=== PATIENT | male | born 1975 | race Caucasian/White ===

== ENCOUNTER 2017-01-06 18:00 | Inpatient (IN) | payer MEDICARE, OTHER ==
--- NOTE | ~2017-01-06 | PN ---
Unit #: [id number] #: [id number] Patient: DAYDAY TONG [id number] [facility] [address] [place] [address] [id number] Migue MR#: [id number] NAME: DAYDAY TONG ROOM: P252 Age: 41 Sex: M Admission Date: 01/06/2017 : 1975 Attending Physician: Bucky Franco M.D. Admitting Physician: Bucky Franco M.D. Primary Care Physician: Primary Care Physician Marcela WALDRON PROGRESS NOTES DATE 01/11/2017 DISCUSSION The patient has returned from the [facility] where he was sent after he had been found down last evening possibly suffered a seizure. No new medication changes were undertaken at that facility. I have learned that the patient's lithium has not been held as I had ordered on admission given his electrolyte status much to my grin. I will discontinue lithium as of today. Dictated by... Bucky Franco M.D. CB/grace TD: 01/11/2017 12:33 JOB #: [id number] [facility] PROGRESS NOTES Page 1 of 1 X Bucky Franco MD X PROGRESS NOTE
--- NOTE | ~2017-01-06 | PN ---
Unit #: [id number] #: [id number] Patient: DAYDAY TONG [id number] [facility] [address] [place] [address] [id number] I MR#: [id number] NAME: DAYDAY TONG ROOM: P264 Age: 41 Sex: M Admission Date: 01/06/2017 : 1975 Attending Physician: Bucky Franco M.D. Admitting Physician: Bucky Franco M.D. Primary Care Physician: Marcela Primary Care Physician [facility] PROGRESS NOTES DATE 01/08/2017. DISCUSSION The patient is in fairly good spirits today and is denying suicidal ideation. He is agreeable to plan for return to his home in [place], [place] once medically stabilized. Our chief worry at this point is the patient's hyponatremia. We continue to hold lithium as his sodium, although trending up, remains at 131. Dictated by... Bucky Franco M.D. CB/gz TD: 01/08/2017 13:40 JOB #: [id number] [facility] PROGRESS NOTES Page 1 of 1 X Bucky Franco MD X PROGRESS NOTE
--- NOTE | ~2017-01-06 | PN ---
Unit #: [id number] #: [id number] Patient: DAYDAY TONG [id number] [facility] [address] [place] [address] [id number] I MR#: [id number] NAME: DAYDAY TONG ROOM: P252 Age: 41 Sex: M Admission Date: 01/06/2017 : 1975 Attending Physician: Bucky Franco M.D. Admitting Physician: Bucky Franco M.D. Primary Care Physician: Primary Care Physician Marcela WALDRON PROGRESS NOTES DATE 01/10/2017 DISCUSSION The patient's transportation back to [place], [place] will be delayed until Friday. He remains hospitalized for safety and stabilization and is active within the therapeutic milieu who offers no new complaints today. Dictated by... Bucky Franco M.D. CB/jenny TD: 01/10/2017 15:34 JOB #: [id number] [facility] PROGRESS NOTES Page 1 of 1 X Bucky Franco MD X PROGRESS NOTE
--- NOTE | ~2017-01-06 | DS ---
Unit #: [id number] #: [id number] Patient: DAYDAY TONG [id number] [facility] [address] [place] [address] [id number] I MR#: [id number] NAME: DAYDAY TONG ROOM: P252 Age: 41 Sex: M Admission Date: 01/06/2017 : 1975 Discharge Date: 01/10/2017 Attending Physician: Bucky Franco M.D. DISCHARGE SUMMARY REASON FOR ADMISSION The patient is a 41-year-old white male, well known to this physician. He is admitted after he had traveled from a personal jail in [place], [place] and had presented to [facility] voicing suicidal ideation. HOSPITAL COURSE The patient was admitted to the [address] [place] [address] unit and placed on suicide precautions. All previously prescribed home medications were continued, but lithium was held after it was learned that the patient's level on admission was 0.1 indicating that he had not been taking the medication and the patient was noted to be hyponatremic on admission with a sodium of 125. The patient's sodium was trending upward at the time of discharge, but this physician made the decision to hold lithium until such time as his electrolytes status can be more thoroughly assessed. By 01/10/2017, the patient requested discharge and transported to [place], [place] was arranged. FINAL DIAGNOSES Schizoaffective disorder; hyponatremia. DISPOSITION ON DISCHARGE The patient is discharged on the following medications: Desyrel 300 mg at bedtime for insomnia, Ativan 0.5 mg b.i.d. for anxiety, Effexor XR 225 mg daily for depression, Neurontin 100 mg b.i.d. for anxiety, Latuda 80 mg daily for psychosis, "Cortone" apply b.i.d. to rash, nystatin 5 mL t.i.d. for oral thrush. DISCHARGE INSTRUCTIONS No dietary or physical restrictions were placed upon the patient at the time of discharge. FOLLOWUP Followup will take place through the auspices of community mental health resources in the [place], [place] area. PROGNOSIS The patient's prognosis is considered fair. Dictated by... Bucky Franco M.D. Unit #: [id number] #: [id number] Patient: DAYDAY TONG NELLIE PATEL/nayana TD: 01/09/2017 15:53 JOB #: [id number] DISCHARGE SUMMARY Page 1 of 1 X Bucky Franco MD DISCHARGE SUMMARY
--- NOTE | ~2017-01-06 | CO ---
Unit #: [id number] #: [id number] Patient: DONOAVN TONG [id number] [place] [address] [id number] I MR#: [id number] NAME: DONOVAN TONG ROOM: P252 Age: 41 Sex: M Admission Date: 01/06/2017 : 1975 Attending Physician: Bucky Franco M.D. Primary Care Physician: Primary Care Physician No Consultation Date: 01/08/2017 CONSULTATION REPORT SUBJECTIVE Donovan is a 41-year-old, who had a critical sodium level on admission. We have been asked to assess and give recommendations. At the time of admission, sodium was 125. Orders were given to repeat the level in 24 hours. Repeat level was 131. We will follow. Dictated by... Selena Sky P.A.-C. for Emre Love/nayana TD: 01/11/2017 00:37 JOB #: [id number] CONSULTATION REPORT Page 1 of 1 X Selena Sky CONSULTATION REPORT
--- NOTE | ~2017-01-06 | PA ---
Unit #: [id number] #: [id number] Patient: DAYDAY TONG [id number] [facility] [address] [place] [address] [id number] I MR#: [id number] NAME: DAYDAY TONG ROOM: P264 Age: 41 Sex: M Admission Date: 01/06/2017 : 1975 Date of Assessment: 01/07/2017 Attending Physician: Bucky Franco M.D. Admitting Physician: Bucky Franco M.D. Primary Care Physician: Primary Care Physician No PSYCHIATRIC ASSESSMENT IDENTIFYING INFORMATION The patient is a 41-year-old white male well known to this physician. He is admitted after [place] had [place] the [place] threatening suicide. CHIEF COMPLAINT "I just came back to see you all." INFORMANT Patient, reliability is poor. HISTORY OF PRESENT ILLNESS The patient is a 41-year-old white male who has not been admitted to this facility since 2014. At that time, he was placed in a residential facility in [place], [place], but states that he returned to the [place] area "just because I wanted to see you folks again," a claim which seems specious at best. The patient had reportedly made statements about jumping off the bridge prior to coming to the hospital. The patient reports that he has been compliant with prescribed medications including Eskalith, Latuda, trazodone, Ativan, Effexor XR, and Neurontin. He states that he came to [place] from [place] on a [employer] bus. It is worth noting that on admission, the patient's sodium was low at 125. PAST PSYCHIATRIC HISTORY The patient suffers from schizoaffective disorder and is chronically psychiatrically ill and disabled. 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 MEDICATIONS 1. Eskalith CR. 2. Latuda. 3. Trazodone. 4. Ativan. 5. Effexor XR. 6. Neurontin. PAST MEDICAL HISTORY Noncontributory. ALLERGIES Penicillin, diphenhydramine, Remeron, zinc acetate, and tomatoes. FAMILY HISTORY Noncontributory. Unit #: [id number] #: [id number] Patient: DAYDAY TONG SOCIAL HISTORY It is unclear whether the patient has actually left his living facility in [facility] permanently, but it is my suspicion that he has probably done so thus rendering him homeless. There is no reported use of alcohol or street drugs. The patient does use smoke tobacco. MENTAL STATUS EXAMINATION Examination at this time reveals the patient to be a well-developed well-nourished white male appearing his stated age. He is in state of some dishevelment and appears dehydrated with blistering of his lips noted. The patient is no apparent physical distress. He is awake, alert, and oriented in all spheres. His mood is dysphoric, his affect blunted, and odd. Speech is impoverished but generally well coherent. There are no gross deficits in memory or cognition noted. Intelligence is judged to be in a range consistent with mild mental retardation. The patient is cooperative throughout the interview. He is currently endorsing positive suicidal ideation. He denies homicidal ideation. He reports positive auditory hallucinations. His judgment and insight appear to be reasonably intact. ASSETS AND LIABILITIES The patient's assets are to be assessed. Liabilities: Lack of resources. DIAGNOSTIC IMPRESSION 1. Schizoaffective disorder. 2. Mild mental retardation. TREATMENT PLAN The patient remains hospitalized for safety and stabilization. At this point, given his low sodium level, we will hold lithium carbonate and look to correct his electrolytes prior to reinitiation of this medication. Other medications, however, will be reinitiated. The patient will participate in appropriate order of milieu activities, and we will look to clarify his disposition situation. ESTIMATED LENGTH OF STAY 5 to 7 days. Dictated by... Bucky Franco M.D. PATEL/grace TD: 01/07/2017 13:41 JOB #: [id number] Unit #: [id number] #: [id number] Patient: DAYDAY TONG PSYCHIATRIC ASSESSMENT Page 1 of 1 X Bucky Franco MD PSYCHIATRIC ASSESSMENT
--- NOTE | ~2017-01-06 | HP ---
Unit #: [id number] #: [id number] Patient: DONOVAN TONG [id number] [place] [address] [id number] I MR#: [id number] NAME: DONOVAN TONG ROOM: P264 Age: 41 Sex: M Admission Date: 01/06/2017 : 1975 Attending Physician: Bucky Franco M.D. Admitting Physician: Bucky Franco M.D. Primary Care Physician: Primary Care Physician No HISTORY AND PHYSICAL HISTORY OF PRESENT ILLNESS Donovan is a 41 year old admitted to [address] [place] [address] with depression and verbalizing wanting to hurt himself. He has had numerous admissions to this facility for the same. However, his last admission with us was 06/08/2015. PAST MEDICAL HISTORY 1. Obesity. 2. High blood pressure. 3. Seizure disorder. PAST SURGICAL HISTORY 1. Cholecystectomy. 2. Oral. He has had all of his teeth pulled or cut out. ALLERGIES Penicillin. SOCIAL HISTORY Smokes 1 pack per day. Denies alcohol and illicit drug use. FAMILY HISTORY Medically noncontributory. REVIEW OF SYSTEMS CONSTITUTIONAL: No fever or chills. HEENT: Denies any sore throat, ear pain or runny nose. CARDIOVASCULAR: Denies chest pain, irregular heart rhythm or palpitations. CHEST: Denies shortness of breath or cough. No hemoptysis. GASTROINTESTINAL: Denies nausea, vomiting, diarrhea or chronic constipation. ENDOCRINE: Denies history of increased thirst or urination. No recent significant weight loss or gain. GENITOURINARY: Denies dysuria, frequency, or hematuria. SKIN: Denies any rashes. HEMATOLOGIC: Denies history of increased bleeding or bruising. MUSCULOSKELETAL: Denies any hot, swollen joints. No generalized muscle pain. NEUROLOGIC: Denies problems with vision or speech. No frequent, severe headaches. No numbness, tingling or weakness in any extremities. Denies loss of bladder or bowel control. CURRENT MEDICATIONS Unit #: [id number] #: [id number] Patient: DONOVAN TONG 1. Melatonin 6 mg q.h.s. p.r.n. 2. Milk of Magnesia p.r.n. 3. Maalox p.r.n. 4. Tylenol p.r.n. PHYSICAL EXAMINATION GENERAL: Alert, well-nourished, in no apparent distress. VITAL SIGNS: Blood pressure 130/88, heart rate 80, respirations 16, temperature 98.6. WEIGHT: 285. HEIGHT: 6 feet 0 inches. SKIN: Warm and dry. He has a flat, red, dry rash along his right pate. Evidence of excoriation. HEENT: Normocephalic. TMs not viewed. Nasal passages clear. He has significant blistering/ulceration to his lower lip. Conjunctivae clear. NECK: Supple without lymphadenopathy or thyromegaly. HEART: Regular rate and rhythm without murmur. LUNGS: Clear. ABDOMEN: Soft, nontender. : Not done. EXTREMITIES: No evidence of cyanosis, clubbing or edema. Moves all without focal deficit. NEUROLOGICAL: Grossly within normal limits. Cranial Nerves: II: Visual sol are intact. III, IV AND : Extraocular movements are intact. Pupils are equal, round and reactive to light. V: Facial sensation is grossly normal. VII: Facial movements and expression are normal. VIII: Auditory acuity grossly intact. IX, X: Uvula is midline. Phonation is normal. XI: Patient shrugs shoulders and turns head normally. XII: Tongue protrudes in the midline. Sensory and Motor Function: Sensory and motor sensation is grossly normal. Motor: moves all extremities well. Coordination: Gait is normal. Deep Tendon Reflexes: Intact. IMPRESSION 1. Psychiatric admission. 2. Rash, most likely dermatitis. 3. Blisters along his lower lip, unknown etiology. RECOMMENDATIONS PSYCHIATRIC: Per psychiatrist. MEDICAL: 1. See no contraindications to participate in facility's activities. 2. Mechanical soft diet. Nystatin swish and swallow 5 cc t.i.d. x7 days and hydrocortisone cream 1% to his right pate b.i.d. MEDICAL PROGNOSIS Good. MEDICAL CONDITION Stable. Dictated by... Selena Sky P.A.-C. for Unit #: [id number] #: [id number] Patient: DONOVAN TONG Emre Love/jenny TD: 01/07/2017 19:47 JOB #: [id number] HISTORY AND PHYSICAL Page 1 of 1 X Selena Sky HISTORY AND PHYSICAL
[2017-01-07 09:44] LABS: BASOPHIL% 0.3 % (0-2.5); EOSINOPHIL% 0.7 % (0.0-7.0); HEMATOCRIT 35.7 % (38.0-50.0); HEMOGLOBIN 12.4 gm/dL (13.0-16.0); LYMPHOCYTE# 0.5 X10e3 (1.0-3.5); LYMPHOCYTE% 15.2 % (17.0-45.0); MEAN CELL VOLUME 96.3 FL (83-96); MEAN CORPUSCULAR HEMOGLOBIN 33.3 PG (28-34); MEAN CORPUSCULAR HGB CONC 34.6 g/dL (30-36); MEAN PLATELET VOLUME 6.9 FL (6.5-11.5); MONOCYTE# 0.3 X10e3 (0-1.0); MONOCYTE% 9.5 % (3.0-12.0); NEUTROPHIL# 2.5 X10e3 (1.5-7.1); NEUTROPHIL% 74.3 % (40-75); PLATELET COUNT 227 X10e3 (140-420); RED BLOOD COUNT 3.71 X10e (3.90-5.60); WHITE BLOOD COUNT 3.4 X10e3 (4.0-10.5)
[2017-01-07 09:56] LABS: URINE APPEARANCE CLEAR; URINE BILIRUBIN NEG (NEG); URINE BLOOD NEG (NEG); URINE COLOR YELLOW; URINE GLUCOSE NEG (NEG); URINE KETONE NEG (NEG); URINE LEUKOCYTE ESTERASE NEG (NEG); URINE NITRATE NEG (NEG); URINE PROTEIN NEG (NEG); URINE SPECIFIC GRAVITY 1.005 (1.003-1.035); URINE UROBILINOGEN 0.2 MG/DL (NEG)
[2017-01-07 09:58] LABS: DIFF IND NO
[2017-01-07 10:14] LABS: BILIRUBIN,TOTAL 0.9 mg/dL (0.2-2.0); BUN/CREATININE RATIO 7.5; CALCIUM SERUM 8.9 mg/dL (8.4-10.2); CREATININE SERUM 0.8 mg/dL (0.6-1.4); POTASSIUM 3.7 mmol/L (3.5-5.1); PROTEIN TOTAL SERUM 6.8 g/dL (6.0-8.3)
[2017-01-07 10:57] LABS: AMPHETAMINE NEG (NEG); BARBITURATES NEG (NEG); BENZODIAZEPINES NEG (NEG); COCAINE NEG (NEG); MARIJUANA NEG (NEG); OPIATES NEG (NEG); TRICYCLIC ANTIDEPRESSANTS NEG (NEG); U METHADONE NEG (NEG)
[2017-01-08 09:59] LABS: BUN/CREATININE RATIO 11.11; CALCIUM SERUM 9.4 mg/dL (8.4-10.2); CREATININE SERUM 0.9 mg/dL (0.6-1.4); GLOM FILT RATE Estimated 105.7 mL/min (>60)
== END 2017-01-13 11:00 | disposition short-term general hospital (02) | DRG 885 ==
LOC: P2L 19:54
PROVIDERS: Specialist
DX: F25.9 Schizoaffective disorder, unspecified (principal); E87.1 Hypo-osmolality and hyponatremia; I10 Essential (primary) hypertension; F70 Mild intellectual disabilities; E66.9 Obesity, unspecified; G40.909 Epilepsy, unspecified, not intractable, without status epilepticus; F17.210 Nicotine dependence, cigarettes, uncomplicated; Z88.0 Allergy status to penicillin; R21 Rash and other nonspecific skin eruption; S00.521A Blister (nonthermal) of lip, initial encounter; G47.00 Insomnia, unspecified; F41.9 Anxiety disorder, unspecified
CPT/HCPCS: 80048; 80053; 80178; 80307; 81003; 85025

== ENCOUNTER 2017-03-10 10:00 | Inpatient (IN) | payer MEDICARE, OTHER ==
[~2017-03-10] VITALS: Ht 167.6 cm; Wt 129.3 kg
--- NOTE | ~2017-03-10 | PA ---
Unit #: [id number] #: [id number] Patient: DAYDAY TONG [id number] [facility] [address] [place] [address] [id number] I MR#: [id number] NAME: DAYDAY TONG ROOM: P262 Age: 41 Sex: M Admission Date: 03/10/2017 : 1975 Date of Assessment: 03/11/2017 Attending Physician: Bucky Franco M.D. Admitting Physician: Bucky Franco M.D. Primary Care Physician: Primary Care Physician No PSYCHIATRIC ASSESSMENT IDENTIFYING INFORMATION The patient is a 41-year-old white male, well known to this physician from multiple previous admissions here. He is readmitted having returned from the personal fci he had resided in, in [place], [place] stating that he does not wish to return there. INFORMANT(S) Patient and chart, reliability is fair. CHIEF COMPLAINT "I ain't going back." HISTORY OF PRESENT ILLNESS The patient is a 41-year-old white male, well known to this physician from countless previous admissions to this facility. The number of these admissions had dropped considerably after the patient had been [place] [facility] [place] [facility]; however, the patient has now returned to [place] and states that he has no intention of returning there. The patient had reported that at this facility voiced positive suicidal ideation with plan to jump off of a bridge. He states that he has been compliant with the prescribed medications until leaving his personal fci a few days ago. When seen today the patient continues to endorse positive suicidal ideation yet seems vicariously future oriented siting a need to "take care of things here in [place]." For a more complete history of present illness please refer to previously dictated notes. PAST PSYCHIATRIC HISTORY Reviewed and no changes. PAST MEDICAL HISTORY Reviewed and no changes. MEDICATIONS 1. Trazodone 2. Ativan 3. Effexor 4. Neurontin 5. Latuda ALLERGIES Mirtazapine, zinc, tomatoes, diphenhydramine, penicillin. Unit #: [id number] #: [id number] Patient: DAYDAY TONG FAMILY HISTORY Reviewed and no changes. SOCIAL HISTORY Reviewed and no changes. MENTAL STATUS EXAM At this time, reveals the patient to be an obese white male, appearing his stated age. He is in no apparent physical distress at the time of this examination. He is awake, alert, and oriented in all spheres. His mood is dysphoric. His affect blunted. Speech is generally relevant and coherent. There are no gross deficits to memory or cognition noted. Intelligence is judged to be in the low-average range based on fund of knowledge. The patient is cooperative throughout the interview. He is currently endorsing positive suicidal ideation. He denies homicidal ideation. He denies any psychotic symptoms. His judgment and insight appears to be at baseline. No signs of tardive dyskinesia are noted. ASSETS To be assessed. LIABILITIES Poor compliance with treatment and chronicity of illness. DIAGNOSTIC IMPRESSION [place] I: Schizoaffective disorder. Mild mental retardation. TREATMENT PLAN The patient remains hospitalized for safety and stabilization. We will restart previously prescribed medications and will begin work with the patient's rn social services regarding disposition options. The patient's suicide precautions remain in place. ESTIMATED LENGTH OF STAY [id number] days. Dictated by... Bucky Franco M.D. PATEL/idania TD: 03/11/2017 12:27 JOB #: [id number] PSYCHIATRIC ASSESSMENT Page 1 of 1 X Bucky Franco MD X PSYCHIATRIC ASSESSMENT
--- NOTE | ~2017-03-10 | PN ---
Unit #: [id number] #: [id number] Patient: DAYDAY TONG [id number] [facility] [address] [place] [address] [id number] I MR#: [id number] NAME: DAYDAY TONG ROOM: 62 Age: 41 Sex: M Admission Date: 03/10/2017 : 1975 Attending Physician: Bucky Franco M.D. Admitting Physician: Bucky Franco M.D. Primary Care Physician: Primary Care Physician Marcela WALDRON PROGRESS NOTES DATE 03/13/2017 DISCUSSION The patient is abed today, seclusive to room, but is compliant with medications and bridges routine. He is more open to returning to [place], [place], where he had previously been residing after discharge, and I will discuss this situation with the group social worker. Dictated by... Bucky Franco M.D. CB/bzg TD: 03/12/2017 12:38 JOB #: [id number] [facility] PROGRESS NOTES Page 1 of 1 X Bucky Franco MD PROGRESS NOTE
--- NOTE | ~2017-03-10 | DS ---
Unit #: [id number] #: [id number] Patient: DAYDAY TONG [id number] [place] [address] [id number] MR#: [id number] NAME: DAYDAY TONG ROOM: [facility] Age: 41 Sex: M Admission Date: 03/10/2017 : 1975 Discharge Date: 03/13/2017 Attending Physician: Bucky Franco M.D. Primary Care Physician: Primary Care Physician No DISCHARGE SUMMARY REASON FOR ADMISSION The patient is a 41-year-old white male admitted with recurrent suicidal ideation. HOSPITAL COURSE The patient was admitted to the [address] [place] [address] Unit and restarted on previously prescribed medications including Ativan, Neurontin, trazodone, Effexor, and Latuda. The patient initially expressed hesitance to return to the fci in which he resides in [facility], but agreed to return there and discharge was ordered on 03/13/2017. At that time, he denied any suicidal ideation or psychotic symptoms. FINAL DIAGNOSES 1. Schizoaffective disorder. 2. Mild mental retardation. DISPOSITION ON DISCHARGE The patient was discharged on the following medications: 1. Ativan 0.5 mg twice daily for anxiety. 2. Trazodone 300 mg at bedtime p.r.n. insomnia. 3. Effexor XR 225 mg daily for depression. 4. Latuda 80 mg daily for psychosis. 5. Neurontin 100 mg twice daily for anxiety. DIET AND ACTIVITY No dietary or physical restrictions placed on the patient at the time of discharge. FOLLOWUP Followup will take place through the auspices of community mental health resources in the [facility] area. PROGNOSIS The patient's prognosis remains a bit guarded. Dictated by... Bucky Franco M.D. CB/grace TD: 03/14/2017 07:28 JOB #: [id number] Unit #: [id number] #: [id number] Patient: DAYDAY TONG DISCHARGE SUMMARY Page 1 of 1 X Bucky Franco MD X DISCHARGE SUMMARY
--- NOTE | ~2017-03-10 | HP ---
Unit #: [id number] #: [id number] Patient: DONOVAN TONG [id number] [place] [address] [id number] I MR#: [id number] NAME: DONOVAN TONG ROOM: P262 Age: 41 Sex: M Admission Date: 03/10/2017 : 1975 Attending Physician: Bucky Franco M.D. Admitting Physician: Bucky Franco M.D. Primary Care Physician: Primary Care Physician No HISTORY AND PHYSICAL HISTORY OF PRESENT ILLNESS Donovan is a 41 year old admitted to [address] [place] [address] with depression and verbalizing wanting to hurt himself. PAST MEDICAL HISTORY 1. Obesity. 2. High blood pressure. 3. Seizure disorder. PAST SURGICAL HISTORY 1. Cholecystectomy. 2. Oral. ALLERGIES Penicillin. SOCIAL HISTORY Smokes one pack per day. Denies alcohol and illicit drug use. FAMILY HISTORY Medically noncontributory. REVIEW OF SYSTEMS CONSTITUTIONAL: No fever or chills. HEENT: Denies any sore throat, ear pain or runny nose. CARDIOVASCULAR: Denies chest pain, irregular heart rhythm or palpitations. CHEST: Denies shortness of breath or cough. No hemoptysis. GASTROINTESTINAL: Denies nausea, vomiting, diarrhea or chronic constipation. ENDOCRINE: Denies history of increased thirst or urination. No recent significant weight loss or gain. GENITOURINARY: Denies dysuria, frequency, or hematuria. SKIN: Denies any rashes. HEMATOLOGIC: Denies history of increased bleeding or bruising. MUSCULOSKELETAL: Denies any hot, swollen joints. No generalized muscle pain. NEUROLOGIC: Denies problems with vision or speech. No frequent, severe headaches. No numbness, tingling or weakness in any extremities. Denies loss of bladder or bowel control. CURRENT MEDICATIONS 1. Milk of Magnesia p.r.n. Unit #: [id number] #: [id number] Patient: DONOVAN TONG 2. Maalox p.r.n. 3. Tylenol p.r.n. PHYSICAL EXAMINATION GENERAL: Alert, well-nourished, in no apparent distress. VITAL SIGNS: Blood pressure 130/86, heart rate 88, respirations 16, temperature 98.6. WEIGHT: 285 pounds. HEIGHT: 5'6". SKIN: Warm and dry without rash or lesion. HEENT: Normocephalic. TMs not viewed. Oral and nasal passages clear. Conjunctivae clear. Pupils equal, round and reactive to light and accommodation. Extraocular movements intact. NECK: Supple without lymphadenopathy or thyromegaly. HEART: Regular rate and rhythm without murmur. LUNGS: Clear. ABDOMEN: Soft, nontender. : Not done. EXTREMITIES: No evidence of cyanosis, clubbing or edema. Moves all extremities without focal deficit. NEUROLOGICAL: Grossly within normal limits. Cranial Nerves: II: Visual sol are intact. III, IV AND : Extraocular movements are intact. Pupils are equal, round and reactive to light. V: Facial sensation is grossly normal. VII: Facial movements and expression are normal. VIII: Auditory acuity grossly intact. IX, X: Uvula is midline. Phonation is normal. XI: Patient shrugs shoulders and turns head normally. XII: Tongue protrudes in the midline. Sensory and Motor Function: Sensory and motor sensation is grossly normal. Motor: moves all extremities well. Coordination: Gait is normal. Deep Tendon Reflexes: Intact. IMPRESSION Psychiatric admission. RECOMMENDATIONS PSYCHIATRIC: Per psychiatrist. MEDICAL: I see no contraindications to participating in facility's activities. MEDICAL PROGNOSIS Good. MEDICAL CONDITION Stable. Dictated by... Selena Sky P.A.-C. for Emre Love/judah TD: 03/11/2017 00:59 Unit #: [id number] #: [id number] Patient: DONOVAN TONG JOB #: [id number] HISTORY AND PHYSICAL Page 1 of 1 X Selena Sky HISTORY AND PHYSICAL
[2017-03-11 09:43] LABS: BASOPHIL% 0.2 % (0-2.5); EOSINOPHIL% 0.5 % (0.0-7.0); HEMATOCRIT 37.7 % (38.0-50.0); HEMOGLOBIN 13.1 gm/dL (13.0-16.0); LYMPHOCYTE# 0.7 X10e3 (1.0-3.5); LYMPHOCYTE% 14.3 % (17.0-45.0); MEAN CELL VOLUME 98.7 FL (83-96); MEAN CORPUSCULAR HEMOGLOBIN 34.4 PG (28-34); MEAN CORPUSCULAR HGB CONC 34.8 g/dL (30-36); MEAN PLATELET VOLUME 7.4 FL (6.5-11.5); MONOCYTE# 0.6 X10e3 (0-1.0); MONOCYTE% 11.1 % (3.0-12.0); NEUTROPHIL# 3.7 X10e3 (1.5-7.1); NEUTROPHIL% 73.9 % (40-75); PLATELET COUNT 222 X10e3 (140-420); RED BLOOD COUNT 3.82 X10e (3.90-5.60); WHITE BLOOD COUNT 5.1 X10e3 (4.0-10.5)
[2017-03-11 09:53] LABS: DIFF IND NO
[2017-03-11 10:31] LABS: ALBUMIN SERUM 4.3 g/dL (3.5-5.0); BILIRUBIN,TOTAL 0.6 mg/dL (0.2-2.0); BUN/CREATININE RATIO 7.27; CALCIUM SERUM 9.4 mg/dL (8.4-10.2); CREATININE SERUM 1.1 mg/dL (0.6-1.4); POTASSIUM 3.4 mmol/L (3.5-5.1); PROTEIN TOTAL SERUM 7.1 g/dL (6.0-8.3)
== END 2017-03-13 14:00 | disposition home or self-care (01) | DRG 885 ==
LOC: P2L 12:38
PROVIDERS: Specialist
DX: F25.9 Schizoaffective disorder, unspecified (principal); F70 Mild intellectual disabilities; R45.851 Suicidal ideations
CPT/HCPCS: 80053; 85025